=== PATIENT | male | born 1960 | race Caucasian/White ===

== ENCOUNTER 2018-06-30 13:57 | Emergency (ER) | payer MEDICAID ==
[2018-06-30] MEDS ORDERED: Tetanus/Diphtheria Toxoids 0.5 ml Syringe IM ONE (14:35)
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
[2018-06-30 14:56] LABS: BASO % 0.4 % (0.0-2.0); EOS # 0.1 K/uL (0.0-0.7); EOS % 0.9 % (0.0-4.0); HEMOGLOBIN 13.8 g/dL (12.0-18.0); LYMPH # 0.7 K/uL (1.0-4.3); LYMPH % 9.1 % (20.0-40.0); MEAN CELL VOLUME 91.7 fL (80.0-94.0); MEAN CORPUSCULAR HEMOGLOBIN 31.2 pg (27.0-31.0); MEAN PLATELET VOLUME 6.8 fL (7.2-11.7); MONO # 0.4 K/uL (0.0-0.8); MONO % 5.2 % (0.0-10.0); NEUT # 6.9 K/uL (1.8-7.0); NEUT % 84.4 % (50.0-75.0); PLATELET COUNT 273 K/uL (130-400); RBC 4.41 Mil/uL (4.40-5.90); RED CELL DISTRIBUTION WIDTH 13.7 % (11.5-14.5); WHITE BLOOD COUNT 8.2 K/uL (4.8-10.8)
[2018-06-30] MEDS ORDERED: Albuterol-Ipratrop 3 mg / 0.5 (3 ml) UD IH STA (14:57)
[2018-06-30] MEDS ORDERED: Albuterol 0.083% Inhal Sol (2.5 mg/3 mL) UD IH STA (14:57)
[2018-06-30] MEDS ORDERED: Albuterol-Ipratrop 3 mg / 0.5 (3 ml) UD ONE (15:05)
[2018-06-30] MEDS ORDERED: Albuterol 0.083% Inhal Sol (2.5 mg/3 mL) UD ONE (15:05)
--- NOTE | 2018-06-30 15:06 | RAD ---
PROCEDURE: Left Hand Radiographs. HISTORY: injury COMPARISON: None. FINDINGS: BONES: No acute fracture or destructive bony lesion identified. JOINTS: No subluxation or dislocation identified. Minimal heterotopic calcifications seen related to the interphalangeal joint of the left thumb. SOFT TISSUES: Normal. OTHER FINDINGS: None. IMPRESSION: No acute fracture, subluxation or dislocation identified.
[2018-06-30 15:08] LABS: ALB/GLOB RATIO 1.4 (1.0-2.1); ALT/SGPT 31 U/L (21-72); AST/SGOT 39 U/L (17-59); BLOOD UREA NITROGEN 19 mg/dL (9-20); CALCIUM 9.1 mg/dl (8.6-10.4); GFR NON-AFRICAN AMERICAN > 60
[2018-06-30 15:21] LABS: LYMPHOCYTE 6 % (20-40); MONOCYTE 3 % (0-10); NEUTROPHIL 91 % (50-75); TOTAL CELLS COUNTED 100
[2018-06-30 15:22] LABS: PLATELET ESTIMATE NORMAL (NORMAL)
--- NOTE | 2018-06-30 15:48 | CT ---
Date of service: 06/30/2018 PROCEDURE: CT HEAD WITHOUT CONTRAST. HISTORY: head injury COMPARISON: None available. TECHNIQUE: Axial computed tomography images were obtained through the head/brain without intravenous contrast. Radiation dose: Total exam DLP = 1171.88 mGy-cm. This CT exam was performed using one or more of the following dose reduction techniques: Automated exposure control, adjustment of the mA and/or kV according to patient size, and/or use of iterative reconstruction technique. FINDINGS: Streak artifact obscures evaluation of the skull base. HEMORRHAGE: No intracranial hemorrhage. BRAIN: Diffuse atrophy with prominence of the ventricles and sulci noted. No mass effect or edema. Intracranial atherosclerosis. The best-white matter differentiation appears intact. Please note that MRI with diffusion imaging is more sensitive in the detection of acute ischemic event. VENTRICLES: No hydrocephalus. CALVARIUM: Unremarkable. PARANASAL SINUSES: Unremarkable as visualized. No significant inflammatory changes. MASTOID AIR CELLS: Unremarkable as visualized. No inflammatory changes. OTHER FINDINGS: None. IMPRESSION: No acute intracranial pathology identified.
[2018-06-30] MEDS ORDERED: Bacitracin 500 Units/gm Oint Foilpak UD TOP ONE (16:10)
[2018-06-30] MEDS ORDERED: Bacitracin 500 Units/gm Oint Foilpak UD ONE (16:12)
[2018-06-30 19:09] VITALS: BP 123/70; PULSE 68; RESP 16; TEMP 98.5; O2SAT 98
== END 2018-06-30 16:17 | disposition home or self-care (01) ==
LOC: C.ER 13:57
DX: S60.222A Contusion of left hand, initial encounter (principal); S60.512A Abrasion of left hand, initial encounter; S00.81XA Abrasion of other part of head, initial encounter; S00.511A Abrasion of lip, initial encounter; V18.0XXA Pedal cycle driver injured in noncollision transport accident in nontraffic accident, initial encounter; Y93.55 Activity, bike riding

== ENCOUNTER 2018-09-08 15:46 | Emergency (ER) | payer MEDICAID ==
[2018-09-08 16:14] VITALS: BMI 28.7
--- NOTE | 2018-09-08 17:23 | C.PDOC ---
History Of Present Illness 57 year old male presents to the emergency department withy complaints of pain to his right buttock, radiating down his right leg for the last two weeks. Patient states that the pain is worse with hot showers. Patient reports that his PMD prescribed him Motrin 800mg, which he takes once a day PO without effective relief. Time Seen by Provider: 09/08/18 16:48 Chief Complaint (Nursing): Lower Extremity Problem/Injury History Per: Patient History/Exam Limitations: no limitations Onset/Duration Of Symptoms: Other (two weeks) Current Symptoms Are (Timing): Still Present Past Medical History Reviewed: Historical Data, Nursing Documentation, Vital Signs Vital Signs: Last Vital Signs Temp 97.7 F 09/08/18 16:04 Pulse 80 09/08/18 16:04 Resp 20 09/08/18 16:04 BP 142/82 09/08/18 16:04 Pulse Ox 98 09/08/18 16:04 - Medical History PMH: Asthma Surgical History: No Surg Hx Family History: States: No Known Family Hx - Social History Hx Alcohol Use: Yes Hx Substance Use: No - Immunization History Hx Tetanus Toxoid Vaccination: No Hx Influenza Vaccination: No Hx Pneumococcal Vaccination: No Review Of Systems Except As Marked, All Systems Reviewed And Found Negative. Musculoskeletal: Positive for: Leg Pain (right buttock, radiating down right leg) Physical Exam - Physical Exam Appears: Non-toxic, No Acute Distress Skin: Normal Color, Warm, Dry, No Rash Head: Atraumatic, Normacephalic Eye(s): bilateral: Normal Inspection Ear(s): Bilateral: Other (deaf, tile edger device utilized) Oral Mucosa: Moist Neck: Normal, Supple Chest: Symmetrical, No Tenderness Extremity: Tenderness (to the right buttock/sacroiliac area ), Other (large wallet noted in right rear pocket) Pulses: Left Dorsalis Pedis: Normal, Right Dorsalis Pedis: Normal Neurological/Psych: Oriented x3, Normal Speech, Normal Cognition, Normal Motor, Normal Sensation Gait: Other (mildly antalgic) ED Course And Treatment O2 Sat by Pulse Oximetry: 98 (RA) Pulse Ox Interpretation: Normal Medical Decision Making Medical Decision Making: R pyriformis syndrome prob NOT related to fall 06/30/18 huge wallet R back pocket worse with hot showers/heat therapies ice/NSAIDS educated w Production Inspector Plan: Motrin 600mg PO Disposition Doctor Will See Patient In The: Office Counseled Patient/Family Regarding: Studies Performed, Diagnosis - Disposition Referrals: [facility] [Outside] [facility] [Outside] [facility] [Outside] [facility] [Outside] Luz Elena Potts MD [Medical Doctor] - Disposition: HOME/ ROUTINE Disposition Time: 17:23 Condition: GOOD Additional Instructions: ice packs to R lower back/buttock area 1/2 hour per hour, nothing hot no hot showers to the area for 1 week Frozen vegetables @ home big tough frozen bags 1/2 hour per hour Motrin/Advil 400-600 mg every 6 hours as needed Pepcid 20 mg @ night to prevent stomach irritation from the motrin follow-up with Dr. Potts as needed. Instructions: Sciatica (DC) Forms: [facility] (Korean) - Clinical Impression Clinical Impression: Pyriformis syndrome - Scribe Statement The provider has reviewed the documentation as recorded by the Scribe (Willem Trujillo) Provider Attestation: All medical record entries made by the Scribe were at my direction and personally dictated by me. I have reviewed the chart and agree that the record accurately reflects my personal performance of the history, physical exam, medical decision making, and the department course for this patient. I have also personally directed, reviewed, and agree with the discharge instructions and disposition.
[2018-09-08 17:50] VITALS: BP 135/78; PULSE 78; RESP 18; TEMP 97.8
[2018-09-08 17:56] VITALS: O2SAT 98
== END 2018-09-08 17:47 | disposition home or self-care (01) ==
LOC: C.ER 15:46
DX: G57.01 Lesion of sciatic nerve, right lower limb (principal)